=== PATIENT | female | born 2000 | race Caucasian/White ===

== ENCOUNTER 2024-08-01 17:55 | Emergency (ER) | payer MEDICAID, SELFPAY ==
[2024-08-01 17:57] VITALS: BP 114/83; PULSE 110; RESP 18; TEMP 36.1; O2SAT 100; BMI 31.8
[2024-08-01 18:41] LABS: Absolute Lymphocyte Count 2.23 X10^3/uL (0.83-4.51); Absolute Neutrophil Count 7.1 X10^3/uL (2.0-7.7); Basophil# 0.06 X10^3/uL; Basophil% 0.6 % (0-1); Eosinophil# 0.06 X10^3/uL; Eosinophils% 0.6 % (0-5); Hematocrit 42.4 % (37-47); Hemoglobin 13.7 g/dL (12.0-15.0); Lymphocyte # 2.23 X10^3/ul (0.83-4.51); Lymphocyte % 22.3 % (19-41); Mean Corp Hgb Conc 32.3 g/dL (32-36); Mean Corpuscular Volume 83.6 fL (81-99); Mean Platelet Vol. 8.8 fl (6.2-12.0); Monocyte# 0.58 X10^3/uL; Monocyte% 5.8 % (0-10); NRBC Flagged by Analyzer 0 % (0-5); Neutrophil # 7.05 X10^3/uL (2.7-7.7); Neutrophil % 70.4 % (47-70); Platelet Count 404 K/mm3 (150-450); RBC Distribution Width CV 15.3 % (11.6-14.6); RBC Distribution Width SD 46.7 fl (35.1-43.9); Red Blood Count 5.07 M/mm3 (4.2-5.4)
[2024-08-01 18:54] LABS: Internal QC Validated? YES +Cl - CLEAR BKGD; Pregnancy, Serum, hCG Quali. NEGATIVE Negative
--- NOTE | 2024-08-01 18:57 | EDS_ITS ---
HPI <KEAGAN Ryder - Last Filed: 08/01/24 20:32> HPI - Female History of Present Illness Chief Complaint: Vag Bleeding Narrative Narrative: Patient presenting today due to abnormal vaginal bleeding she has had over the past several months. She reports that she had a stillborn with twins at the end of April, on she had a Mirena IUD placed. She has had vaginal spotting since having the IUD placed. She normally wears a panty liner and has to change this a few times a day. She has had a few days where she did not bleed. She reports that she had both a tampon and pad in place overnight, this morning she woke up and reports the bleeding was worse than usual and she bled through both of these. She has had to change her pad 4-5 times today. She reports feeling lightheaded and has had pelvic cramping for several days. She denies fevers, chills, dysuria, and urinary frequency. She has not yet seen her SEWING ROOM SUPERVISOR for this issue. PFSH <KEAGAN Ryder - Last Filed: 08/01/24 20:32> [facility] Home Medications ?Medication ?Instructions ?Recorded ?Last Taken ?Type estradiol 2 mg tablet (Estrace) 2 mg PO DAILY 6 days #6 tabs 08/01/24 Unknown Rx Allergy/AdvReac Type Severity Reaction Status Date / Time bee venom protein (honey Allergy Severe Anaphylaxis Verified 08/01/24 17:57 bee) (bees) Social History Smoking Status: Current every day smoker tobacco type: cigarettes ROS <KEAGAN Ryder - Last Filed: 08/01/24 20:32> ROS ED Constitutional Constitutional ED: Denies chills or fever(s) Cardiovascular Cardiovascular: Denies chest pain Respiratory/Chest Respiratory/Chest: Denies cough or dyspnea Gastrointestinal Gastrointestinal: Reports nausea; Denies abdominal pain or vomiting Genitourinary Genitourinary ED: Reports other Details: Pelvic cramping ; Denies dysuria, hematuria or urinary frequency Musculoskeletal Musculoskeletal: Denies arthralgias or myalgias Integumentary Denies rash Neurologic Neurologic: Denies weakness EXAM <KEAGAN Ryder - Last Filed: 08/01/24 20:32> Physical Exam Const Vital Signs: 08/01/24 17:57 08/01/24 19:53 Temperature 97 F L 98.1 F Temperature Source Temporal Pulse Rate 110 H 88 Respiratory Rate 18 16 Blood Pressure 114/83 H 122/78 H Blood Pressure Mean 93 92 Pulse Ox 100 99 Oxygen Delivery Method Room Air Positive well nourished, well developed and no apparent distress General Appearance ED: well developed HEENT Reports normocephalic and head/scalp atraumatic Mouth ED: Yes moist mucous membranes normal Eyes PERRL and EOMs intact bilaterally Neck full ROM and supple Chest Wall inspection of chest normal Resp normal respiratory effort and clear to auscultation bilaterally Cardio regular rate and regular rhythm GI non-tender, non-distended and no masses GI Narrative: Abdomen is soft and nontender, she does have minimal pelvic tenderness palpation without rigidity or guarding. Back/Spine normal ROM and normal to inspection Extremity normal to inspection and full ROM Neuro oriented x3, CN's II-XII intact bilaterally, moves all extremities, no focal motor deficits and no sensory deficits noted Sensorium / Orientation: awake and alert Psych mental status grossly normal and thought process normal Skin no rashes or lesions noted and no wounds <Dr. Patrick Parker MD - Last Filed: 08/01/24 19:42> Physical Exam Const Vital Signs: 08/01/24 17:57 08/01/24 19:53 Temperature 97 F L 98.1 F Temperature Source Temporal Pulse Rate 110 H 88 Respiratory Rate 18 16 Blood Pressure 114/83 H 122/78 H Blood Pressure Mean 93 92 Pulse Ox 100 99 Oxygen Delivery Method Room Air MDM <KEAGAN Ryder - Last Filed: 08/01/24 20:32> [facility] Narrative Medical decision making narrative: Patient presenting today due to abnormal vaginal bleeding she has had since the end of May after having an IUD placed. Her bleeding worsened today, prompting her to come in for evaluation. She has changed her pad for 5 times today. She is otherwise nontoxic-appearing, vitals are unremarkable. Labs obtained, her H&H 13.7 and 42.4, serum is negative. She follows with [facility] maternal medicine, I talked to the on-call OB who recommended speaking with gynecology, Dr. Sarah, who recommended starting patient on Estrace 2 mg once daily for 7 days. The first dose was given here. He recommended that she call the office tomorrow to have an outpatient ultrasound performed and to have close follow-up. Return instructions were discussed with her, patient discharged home in stable condition. Lab Data Attestation: I reviewed the patient's lab results. Labs: Laboratory Results - last 24 hr 08/01/24 18:28 WBC 10.0 RBC 5.07 Hgb 13.7 Hct 42.4 MCV 83.6 MCH 27.0 MCHC 32.3 RDW Std Deviation 46.7 H RDW Coeff of [place] 15.3 H Plt Count 404 MPV 8.8 Immature Gran % (Auto) 0.300 Neut % (Auto) 70.4 H Lymph % (Auto) 22.3 [place] % (Auto) 5.8 Eos % (Auto) 0.6 Baso % (Auto) 0.6 Absolute Neuts (auto) 7.1 Absolute Lymphs (auto) 2.23 Nucleated RBC % 0 Serum , Qual NEGATIVE <Dr. Patrick Parker MD - Last Filed: 08/01/24 19:42> [facility] Lab Data Labs: Laboratory Results - last 24 hr 08/01/24 18:28 WBC 10.0 RBC 5.07 Hgb 13.7 Hct 42.4 MCV 83.6 MCH 27.0 MCHC 32.3 RDW Std Deviation 46.7 H RDW Coeff of [place] 15.3 H Plt Count 404 MPV 8.8 Immature Gran % (Auto) 0.300 Neut % (Auto) 70.4 H Lymph % (Auto) 22.3 [place] % (Auto) 5.8 Eos % (Auto) 0.6 Baso % (Auto) 0.6 Absolute Neuts (auto) 7.1 Absolute Lymphs (auto) 2.23 Nucleated RBC % 0 Serum , Qual NEGATIVE Treatment and Re-Evaluation Narrative: I have personally performed a face to face assessment of the patient and have reviewed the CHAS Note. I performed a substantive portion of the visit including all aspects of the following. My james findings include: History is off-and-on cramping and vaginal bleeding since IUD placed in May, today much more heavy. No symptoms of anemia. Exam is well-appearing no distress no resting tachycardia at this time mild lower abdominal tenderness subjectively no guarding or rebound Medical Decison Making CBC reviewed, blood counts are good, her vitals are stable and she is not orthostatic clinically. Discussed with gynecology who advises starting her on estradiol and having her follow-up closely. Other additions or changes: [None] Discharge Plan Triage Chief Complaint: Vag Bleeding ED Midlevel Provider: Melina Rasmussen ED Provider: Patrick Parker Dx/Rx/DC Orders Clinical Impression: IUD (intrauterine device) in place, Pelvic cramping, DUB (dysfunctional uterine bleeding) Instructions: ED Dysfunctional Uterine Bleeding Prescriptions: New estradiol [Estrace] 2 mg tablet 2 mg PO DAILY 6 Days Qty: 6 0RF Primary Care Provider: Care Physician,No Primary Referrals: Care Physician,No Primary [Primary Care Provider] - Activity Restrictions/Additional Instructions: Call your rafter cutting machine operator tomorrow to set up a follow-up appointment. Take your second dose of the estradiol tomorrow and daily thereafter. Return if you begin bleeding through more than 1 pad per hour. Print Language: Luxembourgish Disposition Disposition: Home, Self Care Discharge Date/Time: 08/01/24 20:00
[2024-08-01 19:53] VITALS: BP 122/78; PULSE 88; RESP 16; TEMP 36.7; O2SAT 99
[2024-08-01] MEDS: Estradiol 1 MG Tablet 2 MG PO (19:54)
== END 2024-08-01 20:00 | disposition home or self-care (01) ==
PROVIDERS: Physician Assistant; Emergency Provider Emergency Medicine; Visit Provider Emergency Medicine
DX: N93.8 Other specified abnormal uterine and vaginal bleeding (principal); R25.2 Cramp and spasm; F17.210 Nicotine dependence, cigarettes, uncomplicated; Z97.5 Presence of (intrauterine) contraceptive device
CPT/HCPCS: 84703; 85025; 99282; A4216